=== PATIENT | male | born 1980 | race Caucasian/White ===

== ENCOUNTER 2016-12-02 07:35 | Emergency (ER) | payer SELFPAY ==
[~2016-12-02] VITALS: Ht 177.8 cm; Wt 95.7 kg
[2016-12-02 07:40] VITALS: BP 169/91; PULSE 74; RESP 16; O2SAT 97
--- NOTE | 2016-12-02 07:57 | ED.REPORT ---
HPI-Psychiatric Illness Date of Service Dec 02, 2016 ED Provider: Fabrizio Young MD A 36 year old male with a history of anxiety, depression and suicidal ideation presents to the ED due to severe stress. The pt states that he "can't take the stress today" and feels overwhelmed, mostly in relation to work. He has been experiencing suicidal ideation chronically for many years, which has worsened with his recent stress, but he denies suicidal attempts. He is not taking any medications regularly and denies drug use. The pt has been getting significantly less sleep recently, but he denies weight loss or gain. He has also been experiencing abdominal issues for the last one to two months, which he believes has been adding to his stress. This includes abdominal pain, nausea and diarrhea. The pt has seen electron beam welder before without improvement. Nursing Notes Stated Complaint: MENTAL BREAKDOWN Chief Complaint: Psychiatric Complaint Nursing Notes Reviewed: Yes ([email or web address], [facility] not reconciled) Allergies: Coded Allergies: No Known Drug Allergies (Verified Allergy, Unknown, 12/02/16) Uncoded Allergies: MILK (Allergy, Unknown, 10/25/04) Scheduled Omeprazole (Omeprazole) 20 Mg Tablet.dr 20 MG PO DAILY Scheduled PRN Alprazolam (Alprazolam) 0.5 Mg Tablet 0.5 MG PO DAILY PRN PRN SEVERE ANXIETY Use IF needed for SEVERE anxiety Ondansetron ODT (Ondansetron ODT) 8 Mg Tab.rapdis 8 MG PO Q4H PRN PRN For Nausea hydrOXYzine Hcl (HydrOXYzine Hcl) 25 Mg Tablet 25 MG PO BID PRN PRN For Anxiety General Time Seen by MD: 07:51 Chief Complaint Other (Stress) Hx Obtained From: Patient Arrived By: Walk-in Symptom Duration: Since onset Recent Healthcare: No recent hospitalization Similar Sx Previous: Yes Risk-Psychiatric Illness Suicide Risk Stratification Suicide Risk Factors - Adult: : Alcohol use (in years past, not recent)No: Previous attempt, Prior psych admission, Substance abuse RF Statements: Risk factors reviewed (not predictive) Past Medical History Past Medical History anxiety depression suicidal ideation ulcer Past Surgical History none reported Smoking History Unknown if Ever Smoker Social History Alcohol Use: "Social" Drug Use: Denies drug use Other Social History: Good social support Ambulatory Status Independent Review of Systems Respiratory: Denies: Non-productive cough, Shortness of breath Cardiovascular: Denies: Chest pain GI: Reports: Abdominal pain (intermittent), Nausea (intermittent) Skin: Denies Rash Psychiatric: Reports: Depression, Stress, Suicidal ideation (chronic) Complete sys rev & neg: except as marked. Physical Exam Initial Vital Signs Vital Signs (First) Date Time Temp Pulse Resp B/P Pulse Ox O2 Delivery O2 Flow Rate FiO2 12/02/16 07:40 36.5 74 16 169/91 97 Room Air Initial VS: Reviewed, Vital signs normal (mild HTN) General/Constitutional: Awake, Alert Behavior: Positive: Tearful Neurologic: Oriented X3, Speech NL, No motor deficits, No sensory deficits Psychiatric: Affect NL suicidal, chronic for years Head / Eyes: Atraumatic, Normocephalic, PERRL, EOMI ENT: Atraumatic, Airway patent, Mucous membranes moist Respiratory / Chest: Atraumatic, Breath sounds NL, Breath sounds = bilat, No respiratory distress Cardiovascular: Heart rate NL, Regular rhythm, Heart sounds NL Abdomen: Atraumatic, Soft, Non-tender Skin: Atraumatic, Color NL, No rash, Warm, Dry Neck: Atraumatic, Supple, Full range of motion Back: Atraumatic, Full range of motion Upper Extremity / MS: Atraumatic, Full range of motion Lower Extremity / Pelvis / MS: Atraumatic, Full range of motion Interpretation & Diagnostics Lab Results Interpretation Result Diagram: 12/02/16 0843 12/02/16 0843 Test 12/02/16 08:43 12/02/16 13:10 White Blood Count 7.3th/mm3 (3.8-10.1) Red Blood Count 4.88mil/mm3 (4.40-5.80) Hemoglobin 14.9g/dL (13.8-17.2) Hematocrit 42.9% (41.0-50.0) Mean Corpuscular Volume 87.9fL (81-100) Mean Corpuscular Hemoglobin 30.5pg (27.0-35.0) Mean Corpuscular Hemoglobin Concent 34.7% (32.0-37.0) Red Cell Distribution Width 12.7% (12.3-15.4) Platelet Count 247bil/L (150-400) Neutrophils (%) (Auto) 72.1% (40-74) Lymphocytes (%) (Auto) 19.2% (14-46) Monocytes (%) (Auto) 7.8% (4-12) Eosinophils (%) (Auto) 0.5% (0-5) Basophils (%) (Auto) 0.3% (0-3) Sodium Level 138mEq/L (134-144) Potassium Level 4.4mEq/L (3.5-5.2) Chloride Level 102mEq/L (97-108) Carbon Dioxide Level 22mmol/L (18-29) Blood Urea Nitrogen 16mg/dL (6-20) Creatinine 0.75mg/dL (0.76-1.27) Estimat Glomerular Filtration Rate 124mL/min (>59) Glucose Level 117mg/dL (60-99) Calcium Level 9.2mg/dL (8.5-10.1) Total Bilirubin 0.4mg/dL (0.0-1.2) Aspartate Amino Transf (AST/SGOT) 20U/L (0-50) Alanine Aminotransferase (ALT/SGPT) 24U/L (0-44) Alkaline Phosphatase 80U/L (25-150) Total Protein 7.1g/dL (6.4-8.4) Albumin 4.3g/dL (3.4-5.0) Lipase 21U/L (13-60) Thyroid Stimulating Hormone (TSH) 1.380uIU/mL (0.450-4.500) Hold Urine Received (Received) Lab Results Interpretation: CBC normal CMP normal TSH normal U tox negative Alcohol negative Re-Eval/Medical Decision Med Decision/Clinical Course This is a 36-year-old male who presents with increasing stress and anxiety. He does admit to a low-level chronic suicidality, but states this has not changed. His been a long-term, he has no specific plan, and is never attempted to hurt himself. Particularly overwhelming recent days reports severe stressors at work. Today he just could not go into work, is tearful. He does not feel unsafe, just overwhelmed. He reports he has been on medications for depression and suicidal ideation 4, but the medicines made him drowsy never really helped. He has never been hospitalized psychiatrically. He denies alcohol or drug concerns. He has noted some epigastric and abdominal discomfort that has been present maybe over the past year, sometimes worse after eating. It is different than heartburn. On exam he is anxious and tearful, but otherwise has a normal exam. He demonstrates no signs of intoxication withdrawal. He seems have an intact insight and judgment. Screening labs were obtained and were normal. The patient seen by FIELD PROPERTY LOSS SPECIALIST, please see their consultation. The patient does not require hospitalization, and is being discharged with follow-up as recommended FIELD PROPERTY LOSS SPECIALIST. He is also receiving a prescription for some empiric omeprazole, and when necessary I got to scene and if needed for more severe symptoms alprazolam. Routine precautions reviewed Source of Hx: Old records Re-Evaluation/Progress : Time of Eval: 07:51 Re-Evaluation/Progress Note: Pt informed of the plan for social services analyst consult and pending discharge during the initial interview. The pt understands and agrees with the plan. All questions are addressed at this time. Consultation : Call Returned at: 14:37 Note: Spoke with social services analyst regarding pt's case. structural layout worker does not believe that hospitalization is necessary. Differential Diagnosis: Positive: Anxiety, Suicidal (chronic, no findings of imminent risk), Negative: Alcohol abuse Counseled Regarding: Diagnosis, Lab results, Need for follow-up, When/why to return to ED Discharge & Departure Impression: Primary Impression: Acute situational disturbance Additional Impressions: Anxiety Abdominal pain )( Condition at Discharge: No danger to self, No danger to others Disposition: Home Discharge Condition All VS Reviewed: Yes Condition: Stable Additional Instructions: 1. Your blood tests were normal. A dangerous cause of the abdominal discomfort he experienced in recent months was not identified. I do recommend taking daily Prilosec to see if that helps. You can also take ondansetron 8mg ( let dissolve under tongue) as needed. 2. You were seen by the FIELD PROPERTY LOSS SPECIALIST. Please follow the recommendations. 3. There are to medicines he could try to help with the anxiety in the morning. They do cause trace drowsiness, although the extent is usually mild. The safest medication to try, that does not cause her dependence-is hydroxyzine 25 mg 1-2 tabs up to every 4-6 hours. Alternatively he could try the prescription medicine alprazolam 0.5 mg, but this is not a good long-term option and does cause some drowsiness, and has the potential for dependence as well used long-term. 4. Return to emergency department if new or worsening symptoms occur Referrals: [facility] Residency [facility] Scribe Attestation Portions of this note were transcribed by Ana Maria Verma. I, Dr. Young personally performed the history, physical exam and medical decision-making; I reviewed and confirmed the accuracy of the information in the transcribed note. copies to: [facility] Res[facility] Fabrizio Young MD Dec 02, 2016 07:57 ANA MARIA VERMA Dec 02, 2016 08:08
[2016-12-02 08:57] LABS: BASOPHILS % (AUTO) 0.3 % (0-3); EOSINOPHILS % (AUTO) 0.5 % (0-5); MONOCYTES % (AUTO) 7.8 % (4-12); Mean Corpuscular Hemoglobin 30.5 pg (27.0-35.0); Mean Corpuscular Volume 87.9 fL (81-100); NEUTROPHILS % (AUTO) 72.1 % (40-74); Platelet Count 247 bil/L (150-400)
[2016-12-02] MEDS ORDERED: ALPR0.5T8 PO (14:55)
[2016-12-02] MEDS ORDERED: OMEP20TA86 PO (14:55)
[2016-12-02] MEDS ORDERED: HYDR-656 PO (14:55)
[2016-12-02] MEDS ORDERED: ONDA8TAB10 PO (14:55)
[2016-12-02 15:17] VITALS: BP 126/77; PULSE 76; RESP 16; O2SAT 96
== END 2016-12-02 15:19 | disposition home or self-care (01) ==
LOC: SED 07:35
DX: F43.0 Acute stress reaction (principal); F41.8 Other specified anxiety disorders; R10.13 Epigastric pain; R45.851 Suicidal ideations; R11.0 Nausea; R19.7 Diarrhea, unspecified

== ENCOUNTER 2016-12-07 07:24 | Emergency (ER) | payer SELFPAY ==
[~2016-12-07] VITALS: Ht 177.8 cm; Wt 95.5 kg
[~2016-12-07 07:24] MED LIST: ALPR0.5T8 PO; HYDR-656 PO; OMEP20TA86 PO; ONDA8TAB10 PO
[2016-12-07 07:34] VITALS: BP 138/97; PULSE 83; RESP 15; O2SAT 98
--- NOTE | 2016-12-07 07:37 | ED.REPORT ---
HPI-General Illness Date of Service Dec 07, 2016 ED Provider: Dash Perez Patient is a 36 year old male with a hx of chronic suicidal ideation and previous psychiatric admission who presents to the ED complaining of drowsiness since he began taking hydroxyzine a few days ago. He was seen in the department 5 days ago for an acute situational disturbance including increasing stress, insomnia, and chronic SI. He was prescribed hydroxyzine, 25 mg 1-2 tabs every 4- 6 hours and alprazolam 0.5 mg. He reports that he is not taking the Alprazolam but feels like the hydroxyzine are helping his symptoms. He denies increased SI beyond his baseline, hallucinations, or any other symptoms. Patient contracts to safety and does not feel like he needs to be admitted. He reports that he does not have a counselor. He has been to [facility] but reports being turned down due to a lack of insurance. Nursing Notes Stated Complaint: DROWSINESS DUE TO MEDICATION Chief Complaint: Psychiatric Complaint Nursing Notes Reviewed: Yes Allergies: Coded Allergies: No Known Drug Allergies (Verified Allergy, Unknown, 12/02/16) Uncoded Allergies: MILK (Allergy, Unknown, 10/25/04) Scheduled Omeprazole (Omeprazole) 20 Mg Tablet.dr 20 MG PO DAILY Scheduled PRN Alprazolam (Alprazolam) 0.5 Mg Tablet 0.5 MG PO DAILY PRN PRN SEVERE ANXIETY Use IF needed for SEVERE anxiety Ondansetron ODT (Ondansetron ODT) 8 Mg Tab.rapdis 8 MG PO Q4H PRN PRN For Nausea hydrOXYzine Hcl (HydrOXYzine Hcl) 25 Mg Tablet 25 MG PO BID PRN PRN For Anxiety General Time Seen by MD: 07:37 Chief Complaint Other (drowsiness ) Hx Obtained From: Patient Arrived By: Walk-in Sudden in Onset?: Yes Onset Occurred: 5 days ago Context of Onset: Medication reaction Symptom Duration: Since onset Recent Healthcare: Recent doctor visit Past Medical History Past Medical History anxiety depression suicidal ideation ulcer Past Surgical History none reported Smoking History Former Smoker Social History Alcohol Use: "Social" Drug Use: Denies drug use Other Social History: Poor social support Ambulatory Status Independent Review of Systems denies SI beyond baseline Full Review of Systems Constitutional: Reports: Fatigue Psychiatric: Denies: Hallucinations, auditory, Hallucinations, visual Complete sys rev & neg: except as marked. Physical Exam Vital Signs Vital Signs Date Time Temp Pulse Resp B/P Pulse Ox O2 Delivery O2 Flow Rate FiO2 12/07/16 07:34 36.5 83 15 138/97 98 Room Air Initial VS: Reviewed, Vital signs abnormal Head / Eyes: Atraumatic, Normocephalic Neck: Full range of motion Respiratory: No respiratory distress Cardiovascular: Regular rate & rhythm, Heart sounds normal Abdomen / GI: Soft, Non-tender Skin: Warm, Dry Neurologic: Alert, Oriented, Nonfocal General/Constitutional: Awake, Alert, No acute distress Psychiatric: Affect NL, Mood NL, No hallucinations vague suicidal thoughts without a plan - patient reports this is his chronic baseline contracts for safety Re-Eval/Medical Decision Med Decision/Clinical Course Not at imminent risk of harm to self or others. Main complaint was oversedation from hydroxyzine. Discussed decreasing the hydroxyzine dose. Also seen by social work in order to help coordinate long-term mental health care. Return and follow-up precautions given Time of Eval: 09:12 Re-Evaluation/Progress Note: Rechecked pt. He agrees to F/U plan. Discussed plan for discharge. Patient understands and agrees with plan. All questions addressed at this time. Consultation #1: Consulted With: bead worker sewing Call Returned at: 08:09 Repairer Art Objects: Will see patient Note: Discussed pt's case. Will see pt Consultation #2: Consulted With: bead worker sewing Call Returned at: 09:00 Note: Will get pt follow up at [facility]. Counseled Regarding: Diagnosis, Need for follow-up, When/why to return to ED Discharge & Departure Primary Impression: Anxiety Disposition: Home Discharge Condition All VS Reviewed: Yes Condition: Stable Additional Instructions: Cut your hydroxyzine tablets in half and take half a dose instead of a full dose. Follow-up in the residency clinic as planned. Use the social work resources provided. Return to the ER as needed if worse. Referrals: [facility] Residency Clinic Armandoibtoy Attestation Portions of this note were transcribed by Gillian Prasad. I, Dr. Perez personally performed the history, physical exam and medical decision-making; I reviewed and confirmed the accuracy of the information in the transcribed note. Signed by: Eusebio Gill, 12/07/16 copies to: [facility] Residency Clinic Dash Perez DO Dec 07, 2016 07:37 GILLIAN PRASAD Dec 07, 2016 08:04
--- NOTE | 2016-12-07 09:28 | NUR ---
POST HOSPITAL FOLLOW UP: Scheduled appointment at Residency clinic for 12/10/16 check in at 815AM for 830AM appointment with Updated FOOD AND NUTRITION TEACHER
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
== END 2016-12-07 10:29 | disposition home or self-care (01) ==
LOC: SED 07:24
DX: F41.9 Anxiety disorder, unspecified (principal); Z87.891 Personal history of nicotine dependence

== ENCOUNTER 2016-12-17 14:26 | Emergency (ER) | payer SELFPAY ==
[~2016-12-17] VITALS: Ht 177.8 cm; Wt 95.5 kg
[2016-12-17 14:44] VITALS: BP 138/95; PULSE 79; RESP 16; O2SAT 97
[2016-12-17 15:14] LABS: Mean Corpuscular Hemoglobin 30.1 pg (27.0-35.0); Mean Corpuscular Volume 86.3 fL (81-100)
--- NOTE | 2016-12-17 17:11 | ED.REPORT ---
HPI-NVD Date of Service Dec 17, 2016 ED Provider: Marco Antonio Weiss PA-C Johnny is a 36-year-old male presents to emergency department with chief complaint of chronic nausea. Patient states that he generally wakes up with nausea and dry heaves which improve over the course today but rarely resolved. He states this is been going on for roughly 1 year, worsening over the last month. Admits occasional epigastric pain though not severe. Reports diarrhea consisting of small to medium volume watery stools 4-5 times a day without blood or mucus. Denies memo blood, admits to black stools which she attributes to the Pepto-Bismol he takes. She reports that he is attempted treatment with Pepto-Bismol, discontinued energy drinks. He states that not eating and improves his symptoms. Admits to occasional alcohol and cigars, denies other drugs including marijuana. Denies chest pain, shortness of breath , cough, palpitations, dysuria, hematuria, fever, shaking chills, intentional weight loss, vomiting, hematemesis. Review of records indicates history of ulcer. Nursing Notes Stated Complaint: NAUSEA Chief Complaint: Male Abdominal Pain Nursing Notes Reviewed: Yes Allergies: Coded Allergies: lactose (Verified Allergy, Mild, GAS, 12/17/16) No Known Drug Allergies (Verified Allergy, Unknown, 12/17/16) Scheduled Omeprazole (Omeprazole) 20 Mg Tablet.dr 20 MG PO DAILY Scheduled PRN Alprazolam (Alprazolam) 0.5 Mg Tablet 0.5 MG PO DAILY PRN PRN SEVERE ANXIETY Use IF needed for SEVERE anxiety Ondansetron ODT (Ondansetron ODT) 8 Mg Tab.rapdis 8 MG PO Q4H PRN PRN For Nausea hydrOXYzine Hcl (HydrOXYzine Hcl) 25 Mg Tablet 25 MG PO BID PRN PRN For Anxiety General Time Seen by MD: 16:40 Chief Complaint Nausea Past Medical History Past Medical History anxiety depression suicidal ideation ulcer Past Surgical History none reported Smoking History Former Smoker Social History Alcohol Use: "Social" Drug Use: Denies drug use Other Social History: Poor social support Ambulatory Status Independent Review of Systems General: Denies fever, chills, malaise. Respiratory: Denies dyspnea, cough, shortness of breath, wheezing. Cardiovascular: Denies chest pain, palpitations. Gastrointestinal: Admits to diarrhea, abdominal pain. Denies vomiting Genitourinary: Denies frequency, urgency, dysuria, hematuria. Otherwise as noted in HPI. Physical Exam General: Well appearing, well developed, well nourished, no acute distress. Head: Atraumatic, normocephalic. Eyes: No scleral icterus or injection. No discharge. Vision grossly intact. ENT: Voice clear, hearing grossly intact. Respiratory: Regular rate and rhythm. Breath sounds present, clear to auscultation and equal bilaterally. No respiratory distress. No increased work of breathing, speaks in complete sentences. Cardiovascular: Regular rate and rhythm, without murmur, gallop or rub. No pedal edema. Gastrointestinal: Abdomen flat and non-tender without guarding or rebound. Bowel sounds normoactive. Rectal: Normal to inspection, negative external masses or discharge. Normal tone, nontender, no masses. Firm stool is noted in the rectal vault. Produces soft brown stool, guaiac-negative. Skin: Warm and dry. Neurological: Grossly nonfocal. Psychological: Alert and oriented. Speech appropriate, linear and logical. Behavior appropriate. Initial Vital Signs Vital Signs (First) Date Time Temp Pulse Resp B/P Pulse Ox O2 Delivery O2 Flow Rate FiO2 12/17/16 14:44 36.2 79 16 138/95 97 Room Air Elevated blood pressure Interpretation & Diagnostics Lab Results Interpretation Result Diagram: 12/17/16 1509 12/17/16 1509 Test 12/17/16 15:09 White Blood Count 7.0th/mm3 (3.8-10.1) Red Blood Count 5.32mil/mm3 (4.40-5.80) Hemoglobin 16.0g/dL (13.8-17.2) Hematocrit 45.9% (41.0-50.0) Mean Corpuscular Volume 86.3fL (81-100) Mean Corpuscular Hemoglobin 30.1pg (27.0-35.0) Mean Corpuscular Hemoglobin Concent 34.9% (32.0-37.0) Red Cell Distribution Width 12.4% (12.3-15.4) Platelet Count 220bil/L (150-400) Sodium Level 138mEq/L (134-144) Potassium Level 3.7mEq/L (3.5-5.2) Chloride Level 101mEq/L (97-108) Carbon Dioxide Level 21mmol/L (18-29) Blood Urea Nitrogen 10mg/dL (6-20) Creatinine 0.63mg/dL (0.76-1.27) Estimat Glomerular Filtration Rate 151mL/min (>59) Glucose Level 124mg/dL (60-99) Calcium Level 9.2mg/dL (8.5-10.1) Total Bilirubin 0.4mg/dL (0.0-1.2) Aspartate Amino Transf (AST/SGOT) 29U/L (0-50) Alanine Aminotransferase (ALT/SGPT) 39U/L (0-44) Alkaline Phosphatase 88U/L (25-150) Total Protein 7.6g/dL (6.4-8.4) Albumin 4.4g/dL (3.4-5.0) Re-Eval/Medical Decision Med Decision/Clinical Course 36-year-old male presents with a chief complaint of chronic nausea worsening over the last month. Associated with epigastric pain, diarrhea, dark stool. Denies other symptoms. Physical examination is reassuring, normal rectal exam, stool guaiac negative, soft abdomen. CBC and CMP are normal with exception of a slightly low creatinine. Vital signs are normal except for mild hypertension. I discussed this case with Dr. Lares. I am reassured against immediately dangerous causes such as bleeding ulcer, cholecystitis, appendicitis , pancreatitis, diverticulitis, bowel obstruction, ACS, Boerhaave's syndrome. This may reflect a gastric ulcer, cyclic vomiting, anxiety, irritable bowel syndrome, hiatal hernia, GERD. We believe he is stable and safe to be discharged home. Advise [id number] omeprazole and Metamucil for 2 weeks. Provided follow-up referral for the [facility] clinic. Advised regarding primary care follow-up, provided emergency return precautions. Patient verbalized understanding of, and consent to, the plan. Discharge & Departure Impression: Primary Impression: Nausea Disposition: Home Discharge Condition All VS Reviewed: Yes Condition: Stable Additional Instructions: Evaluation for chronic nausea in the emergency department includes interview, physical examination and lab tests all of which are reassuring that this is unlikely to be caused by an immediately dangerous condition. I recommend using [id number] omeprazole and Metamucil as directed on the package for 2 weeks. I will give you a referral to the [facility] residency clinic for follow-up. Please contact them in the next few days to arrange follow-up in about 2 weeks. At that time they can reassess your progress and you can discuss next steps. Return to the emergency department for new or worsening symptoms including increasing pain, fever, chest pain or shortness of breath. Referrals: [facility] EDSupervising Provider for APC: Carlos Alberto Lares MD copies to: [facility] Marco Antonio Weiss PA-C Dec 17, 2016 17:11
== END 2016-12-17 18:10 | disposition home or self-care (01) ==
LOC: SED 14:26
DX: R11.0 Nausea (principal); R10.13 Epigastric pain; R19.7 Diarrhea, unspecified; F41.9 Anxiety disorder, unspecified; F32.9 Major depressive disorder, single episode, unspecified; Z87.891 Personal history of nicotine dependence; Z91.011 Allergy to milk products